=== PATIENT | male | born 2005 ===

== ENCOUNTER 2023-07-30 09:26 | Outpatient (AMB) | payer OTHER, SELFPAY ==
--- NOTE | 2023-07-30 09:38 | AM.OFFWIN_ITS ---
Intake Vital Signs 07/30/23 09:40 Height 6 ft 1 in Weight 181 lb BMI 23.9 BP 126/60 Blood Pressure Location Lt brachial Position Sitting Respiration 15 Pulse 86 Pulse Source Pulse Oximeter Temp 99.5 F Temp Source Temporal Artery Scan Pulse Oximetry (%) 98 Oxygen Delivery Method Simple Mask Intake Visit Reasons: Cough,bodyache,chills Intake Note: Patient has had running nose, chills, headache, coughing, vomiting x3 days. [employer] Certified Supervisor Required: No Accompanied by: self Allergies No Known Allergies Allergy (Verified 07/30/23 10:04) Medication List - [facility]23 [facility] No Known Home Meds Do you need a note to return to daycare/school/sports/work: Yes Return to daycare/school/sports/work/other note: work HPI HPI Comments History of Present Illness Details 3 days of flu like sx runny nose, sneezing then developed fever 100.4, chills, headache, bodyaches, cough This AM started vomiting Needs work note. Missed 3 days. Taking Ibuprofen w/ + relief. Review of Systems Const All systems reviewed & are unremarkable except as noted in HPI and below Physical Exam Vital Signs: Last Vital Signs Temp 99.5 F 07/30/23 09:40 Pulse 86 07/30/23 09:40 Resp 15 07/30/23 09:40 BP 126/60 07/30/23 09:40 Pulse Ox 98 07/30/23 09:40 Oxygen Delivery Method Simple Mask 07/30/23 09:40 BMI result Body Mass Index 23.9 Const Other: Awake alert mildly ill appearing, diaphoretic, NAD Sclera and conjunctiva clear bilat TM intact and clear bilat, mild erythema on L Nares w/ clear nasal d/c bilat MMM, pharynx WNL RRR LS CTAB Assessment & Plan Assessment & Plan (1) Flu-like symptoms: Code(s): R68.89 - Other general symptoms and signs Plan: Viral Swab pending (2) Influenza A: Code(s): J10.1 - Influenza due to other identified influenza virus with other respiratory manifestations Plan: 1516: viral swab came back positive for influenza type A. Patient was called with these results. Tamiflu sent to the pharmacy. Advised to take as directed. Okay to continue the supportive medications that I prescribed the visit today to help him with the coughing and nausea and vomiting. Plan Total time spent caring for the patient today was 30 minutes. This includes time spent before the visit reviewing the chart, time spent during the visit, and time spent after the visit on documentation This note is constructed using voice recognition software. While every effort has been made to ensure accuracy in configuration management manager, still errors may have been included Sometimes, these errors may affect the content or meaning of the given sentence . Orders: Orders SARS-CoV2/FLU/RSV Today R68.89 - Other general symptoms and signs Medications: New benzonatate 100 mg PO TID PRN 30 caps 1RF cough 10 days ondansetron HCl 4 mg PO Q8H PRN 15 tabs 0RF nausea and vomiting 3 days oseltamivir (Tamiflu) 75 mg PO Q12H 10 caps 0RF 5 days Patient Instructions: Influenza (flu) is an infection in the lungs and breathing passages. It is caused by the influenza virus. There are different strains, or types, of the flu virus from year to year. Unlike the common cold, the flu comes on suddenly and the symptoms can be more severe. These symptoms include a cough, congestion, fever, chills, fatigue, aches, and pains. These symptoms may last for a few weeks. Although the flu can make you feel very sick, it usually doesn't cause serious health problems. Home treatment is usually all you need for flu symptoms. But your doctor may prescribe antiviral medicine to prevent other health problems, such as pneumonia, from developing. The risk of other health problems from the flu is highest for young children (under 5), older adults (over 65), women, people with long-term health conditions, people who live in nursing homes or long-term care centres, and indigenous peoples. How can you care for yourself at home? Get plenty of rest. Drink plenty of fluids. If you have to limit fluids because of a health problem, talk with your doctor before you increase the amount of fluids you drink. Take an [id number]-mftycns pain medicine if needed, such as acetaminophen (Tylenol), ibuprofen (Advil, Motrin), or naproxen (Aleve), to relieve fever, headache, and muscle aches. Read and follow all instructions on the label. No one younger than 18 should take aspirin. It has been linked to Janeen syndrome, a serious illness. Take any prescribed medicine exactly as directed. Do not smoke. Smoking can make the flu worse. If you need help quitting, talk to your doctor about stop-smoking programs and medicines. These can increase your c hances of quitting for good. If the skin around your nose and lips becomes sore, put some petroleum jelly (such as Vaseline) on the area. To ease coughing: Suck on cough drops or plain, hard candy. Try an [id number]-[id number] cough or cold medicine. Read and follow all instructions on the label. Raise your head at night with an extra pillow. This may help you rest if coughing keeps you awake. To avoid spreading the flu Wash your hands regularly, and keep your hands away from your face. Stay home from school, work, and other public places until you are feeling better and your fever has been gone for at least 24 hours. The fever needs to have gone away on its own without the help of medicine. Ask people living with you to talk to their doctors about preventing the flu. They may get antiviral medicine to keep from getting the flu from you. To prevent the flu in the future, get the flu vaccine every fall. Encourage people living with you to get the vaccine. Cover your mouth when you cough or sneeze. If you can, cough or sneeze into the bend of your elbow, not your hands. When should you call for help? Call 911 anytime you think you may need emergency care. For example, call if: You have severe trouble breathing. You have a seizure. Call your doctor or nurse advice line now or seek immediate medical care if: You have trouble breathing. You have a fever with a stiff neck or a severe headache. You have pain or pressure in your chest or belly. You have a fever or cough that returns after getting better. You feel very sleepy, dizzy, or confused. You are not urinating. You have severe muscle pain. You have severe weakness, or you are unsteady. You have medical conditions that are getting worse Watch closely for changes in your health, and be sure to contact your doctor or nurse advice line if: You do not get better as expected. You are having a problem with your medicine. Coding Level of Care Code Est Pt Level 4 (24012) Diagnoses Flu-like symptoms R68.89 Influenza A J10.1
[2023-07-30 09:40] VITALS: BP 126/60; PULSE 86; RESP 15; TEMP 37.5; O2SAT 98; BMI 23.9
== END 2023-07-30 10:23 | disposition home or self-care (01) ==
PROVIDERS: Visit Provider Nurse Practitioner Family
DX: R68.89 Other general symptoms and signs (principal); J10.1 Influenza due to other identified influenza virus with other respiratory manifestations
CPT/HCPCS: 99214

== ENCOUNTER 2023-07-30 12:29 | Outpatient (REF) | payer OTHER, SELFPAY ==
[2023-07-30 14:41] LABS: Influenza A PCR POSITIVE (Negative); Influenza B PCR NEGATIVE (Negative); Resp Syncy Virus RNA Qual PCR NEGATIVE (Negative); SARS COV2 PCR INHOUSE NEGATIVE (Negative)
== END 2023-07-30 12:30 | disposition home or self-care (01) ==
LOC: HO.LNP 12:29
PROVIDERS: Visit Provider Nurse Practitioner Family
DX: Z11.52 Encounter for screening for COVID-19 (principal); Z20.822 Contact with and (suspected) exposure to COVID-19; R68.89 Other general symptoms and signs
CPT/HCPCS: 0241U